=== PATIENT | male | born 1985 | race Two or more races ===

== ENCOUNTER 2022-04-26 04:20 | Day surgery (SDC) | payer OTHER ==
[2022-04-23 17:25] VITALS: BMI 28.8
[2022-04-26] MEDS ORDERED: DEXAMETHASONE SOD PHOSPHATE 10 MG/1 ML VIAL ONE (07:42)
[2022-04-26] MEDS ORDERED: BUPIVACAINE HCL/PF 0.5% (5MG/ML) 10 ML VIAL ONE (07:43)
[2022-04-26] MEDS ORDERED: GENTAMICIN SO4 80 MG/2 ML VIAL ONE (07:44)
[2022-04-26] MEDS ORDERED: LIDOCAINE HCL 1%, 10 MG/ML (20ML VIAL) ONE (07:47)
[2022-04-26] MEDS ORDERED: DEXAMETHASONE SOD PHOSPHATE 4 MG/1 ML VIAL ONE (09:01)
[2022-04-26] MEDS ORDERED: LIDOCAINE HCL 1%, 10 MG/ML (20ML VIAL) INF ONE ×3 (09:07→10:04)
[2022-04-26] MEDS ORDERED: DEXAMETHASONE SOD PHOSPHATE 4 MG/1 ML VIAL IVPUSH ONE ×2 (09:08→10:22)
[2022-04-26] MEDS ORDERED: BUPIVACAINE HCL/PF 0.5% (5 MG/ML) 30 ML VIAL IJ ONE ×5 (09:08→10:22)
[2022-04-26] MEDS ORDERED: GENTAMICIN 80MG PREMIX BAG IVPB ONE ×2 (09:09→10:22)
[2022-04-26] MEDS ORDERED: MIDAZOLAM HCL 2 MG/2 ML SINGLE DOSE VIAL ONE (09:51)
[2022-04-26] MEDS ORDERED: PROPOFOL 40 ML ONE (09:51)
[2022-04-26] MEDS ORDERED: ceFAZolin SODIUM 1 GM VIAL IVPB ONE (10:04)
[2022-04-26] MEDS ORDERED: ONDANSETRON 4 MG/2 ML VIAL IVPUSH PRN (10:38)
[2022-04-26] MEDS ORDERED: oxyCODONE HCL 5 MG TABLET PO PRN (10:38)
[2022-04-26 12:02] VITALS: BP 128/81; PULSE 75; RESP 18; TEMP 98.8
== END 2022-04-26 12:00 | disposition home or self-care (01) ==
LOC: JASU-SURG 04:20
PROVIDERS: ATTEND Podiatrist Foot Surgery
PROC: 0SRP0JZ Replacement of Right Toe Phalangeal Joint with Synthetic Substitute, Open Approach (ICD-10-PCS; principal; 2022-04-26 09:30)
DX: M20.41 Other hammer toe(s) (acquired), right foot (principal)
CPT/HCPCS: 73630-TC-RT-FY; 88305-TC; 88311-TC; 94760; J1100